=== PATIENT | female | born 1970 | race Caucasian/White ===

== ENCOUNTER 2018-02-11 08:45 | Observation (INO) | payer OTHER ==
[2018-02-11] MEDS ORDERED: ceFAZolin 2 GM/SWFI 2 GM/20 ML SYR IVP ONE (09:07)
[2018-02-11] MEDS ORDERED: LR 1,000 ML IV ONE (09:08)
[2018-02-11] MEDS ORDERED: ceFAZolin 2 GM/DEXTROSE 100 ML IV ONE (09:30)
[2018-02-11] MEDS ORDERED: BUPIVACAINE 0.25% 30 ML SDV ONE ×2 (11:00→12:06)
[2018-02-11] MEDS ORDERED: BACITRACIN ZINC 14.2 GM OINTTUBE TP ONE (11:00)
[2018-02-11] MEDS ORDERED: GENTAMICIN SULFATE 80 MG/2 ML VIAL ONE (11:01)
[2018-02-11] MEDS ORDERED: METHYLENE BLUE 0.5% 50 MG/10 ML AMP ONE (11:01)
[2018-02-11] MEDS ORDERED: ceFAZolin 1 GM/5 ML SYR ONE (11:02)
[2018-02-11] MEDS ORDERED: BACITRACIN 50,000 UNITS/10 ML SYR IRR ONE (11:02)
[2018-02-11] MEDS ORDERED: DEXAMETHASONE 4 MG/ML VIAL IVP PRN (11:12)
[2018-02-11] MEDS ORDERED: MIDAZOLAM 2 MG/2 ML VIAL IVP ONE (11:12)
[2018-02-11] MEDS ORDERED: fentaNYL 100 MCG/2 ML INJ IVP PRN ×2 (11:12→15:59)
[2018-02-11] MEDS ORDERED: HYDROmorphONE/DILAUDID 1 MG/ML INJ IVP PRN (11:12)
[2018-02-11] MEDS ORDERED: ALBUTEROL 3 ML DEYVIAL IH PRN (11:12)
[2018-02-11] MEDS ORDERED: ONDANSETRON 4 MG/2 ML VIAL IVP PRN ×2 (11:12→15:59)
[2018-02-11] MEDS ORDERED: oxyCODONE IR 5 MG TAB PO PRN (11:12)
[2018-02-11] MEDS ORDERED: NALOXONE HCL 0.4 MG/ML INJ IVP PRN ×2 (11:12→15:59)
--- NOTE | 2018-02-11 11:12 | PDHPUP ---
History & Physical Update H&P update statement: This history and physical update is based on an assessment of the patient which was completed after admission or registration (within 24 hours), but prior to the surgery/procedure. H&P update: H&P reviewed & patient examined, no change in patient's condition since H&P completed
--- NOTE | 2018-02-11 11:14 | PDANEPAE ---
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 ANE Past Medical History - Cardiovascular History Hx Hypertension: No Hx Arrhythmias: No Hx Chest Pain: No Hx Coronary Artery / Peripheral Vascular Disease: No Hx CHF / Valvular Disease: No Hx Palpitations: No - Pulmonary History Hx COPD: No Hx Asthma/Reactive Airway Disease: No Hx Recent Upper Respiratory Infection: No Hx Oxygen in Use at Home: No Hx Sleep Apnea: No Sleep Apnea Screening Result - Last Documented: Negative - Neurologic History Hx Cerebrovascular Accident: No Hx Seizures: No Hx Dementia: No - Endocrine History Hx Diabetes: No - Renal History Hx Renal Disorders: No - Liver History Hx Hepatic Disorders: No - Neurological & Psychiatric Hx Hx Neurological and Psychiatric Disorders: No Neurological / Psychiatric History Comment: situational anxiety - Cancer History Hx Cancer: No - Congenital Disorder History Hx Congenital Disorders: Yes Congenital History Comment: breast cancer - GI History Hx Gastrointestinal Disorders: No - Other Health History Other Health History: none - Chronic Pain History Chronic Pain: No - Surgical History Prior Surgeries: bilat biopsy breast ANE Review of Systems Review of Systems: - Exercise capacity Exercise capacity: >=4 METS METS (RN): 5 METS ANE Patient History - Allergies Allergies/Adverse Reactions: No Known Allergies Allergy (Verified 01/14/18 08:45) - Home Medications Home Medications: Calcium Carb W/Vit D [Calcium Carb W/Vit D 500/200 (*)] 500 mg PO DAILY [Last Taken 02/03/18] Herbals/Supplements -Info Only 1 ea PO DAILY 01/14/18 [Last Taken 02/03/18] Levothyroxine [Synthroid 88 mcg (*)] 88 mcg PO DAILY06 01/14/18 [Last Taken 04/23] Multivitamins W-Minerals [Thera M Plus Tablet (*)] 1 each PO DAILY 01/14/18 [ Last Taken 02/03/18] - NPO status NPO Since - Liquids (Date): 02/10/18 NPO Since - Liquids (Time): 21:00 NPO Since - Solids (Date): 02/10/18 NPO Since - Solids (Time): 20:00 - Smoking Hx Smoking Status: Never smoked - Family Anes Hx Family Hx Anesthesia Complications: none ANE Labs/Vital Signs - Vital Signs Blood Pressure: 136/92 Heart Rate: 80 Respiratory Rate: 18 O2 Sat (%): 100 Height: 167.64 cm Weight: 50.802 kg ANE Physical Exam - Airway Neck exam: FROM Mallampati Score: Class 2 - Pulmonary Pulmonary: clear to auscultation - Cardiovascular Cardiovascular: regular rate and rhythym - ASA Status ASA Status: II ANE Anesthesia Plan Anesthesia Plan: GA w LMA
[2018-02-11] MEDS ORDERED: MIDAZOLAM 2 MG/2 ML VIAL ONE (11:26)
[2018-02-11] MEDS ORDERED: PROPOFOL 200 MG/20 ML VIAL ONE (11:28)
[2018-02-11] MEDS ORDERED: LIDOCAINE 2% 5 ML SDV ONE (11:29)
[2018-02-11] MEDS ORDERED: fentaNYL 100 MCG/2 ML INJ ONE (11:30)
[2018-02-11] MEDS ORDERED: HYDROmorphONE/DILAUDID 2 MG/ML INJ ONE (12:13)
[2018-02-11] MEDS ORDERED: DEXAMETHASONE 4 MG/ML VIAL ONE (12:42)
[2018-02-11] MEDS ORDERED: ONDANSETRON 4 MG/2 ML VIAL ONE (12:42)
[2018-02-11] MEDS ORDERED: RANITIDINE 50 MG/2 ML VIAL ONE (12:43)
[2018-02-11] MEDS ORDERED: ONDANSETRON DISINTEGRATING 4 MG TAB PO PRN (13:46)
[2018-02-11] MEDS ORDERED: ACETAMINOPHEN 325 MG TAB PO PRN (13:51)
[2018-02-11] MEDS ORDERED: ceFAZolin 1 GM VIAL ONE (14:00)
[2018-02-11] MEDS ORDERED: LR 1,000 ML IV SCH (14:00)
[2018-02-11] MEDS ORDERED: ROCURONIUM 50 MG/5 ML VIAL ONE (14:02)
[2018-02-11] MEDS ORDERED: NITROGLYCERIN 2% 1 GM PACKET TP ONE (14:15)
--- NOTE | 2018-02-11 14:24 | POSTOPPROG ---
Post Op Note Date of Operation: 02/11/18 Surgeon: Arvind Cardoza (, FACS) Manager Scientific: Beryl Varma RN-FA Anesthesia: GET(General Endotracheal) Pre-op Diagnosis: Atypical Lobular Hyperplasia Procedure: bilateral nipple sparing mastectomy Inf/Abcess present in the surg proc area at time of surgery?: No Specimen(s): bilateral breast tissue tagged for orientation
[2018-02-11] MEDS ORDERED: PHENYLEPHRINE HCL 100 MCG/ML SYR ONE ×2 (14:51)
[2018-02-11] MEDS ORDERED: SUGAMMADEX SODIUM 200 MG/2 ML VIAL IVP ONE (15:23)
--- NOTE | 2018-02-11 15:47 | POSTOPPROG ---
Post Op Note Date of Operation: 02/11/18 Surgeon: Abraham Lee Acid Patroller: Guy LISA Anesthesia: GET(General Endotracheal) Pre-op Diagnosis: Left breast atypia/high risk breast cancer Post-op Diagnosis: Same Indication: High risk breast cancer Procedure: Bilateral tissue packer fuser recon Inf/Abcess present in the surg proc area at time of surgery?: No EBL: Minimal (40cc) Total fluids administered: 1500cc Complications: none Drains: Evens Conti (x2)
[2018-02-11] MEDS ORDERED: HYDROCODONE/APAP 5/325 TAB PO PRN (15:59)
[2018-02-11] MEDS ORDERED: LR 500 ML IV PRN (15:59)
--- NOTE | 2018-02-11 15:59 | POSTANESTH ---
Post Anesthetic Evaluation Cardiovascular Status: Similar to Pre-Op Cond Respiratory Status: Similar to Pre-op Cond. Level of Consciousness/Mental Status: Mildly Sleepy, Arousable Pain Control: Adequate, Prn Tx Ordered Nausea/Vomiting Control: Adequate, Prn Tx Ordered Complications Possibly Related to Anesthesia: None Noted
--- NOTE | 2018-02-11 16:27 | GOP ---
[f rep st] OPERATIVE REPORT DATE OF OPERATION: 02/11/2018 SURGEON: Abraham Lee MD ANESTHESIA: General endotracheal. PREOPERATIVE DIAGNOSIS: High-risk breast cancer and left breast atypia. POSTOPERATIVE DIAGNOSIS: High-risk breast cancer and left breast atypia. PROCEDURE PERFORMED: Bilateral tissue rn testing reconstruction with AlloDerm. FINDINGS: SPECIMENS: None. ESTIMATED BLOOD LOSS: 40. INDICATIONS: This is a pleasant 47-year-old female with a family history of breast cancer as well as multiple left breast biopsies for atypia. She elected to undergo prophylactic mastectomies with imm ediate reconstruction. DESCRIPTION OF PROCEDURE: Patient was met previously in my office where the risks and benefits were discussed at length which include infection, bleeding, hematoma, seroma, mastectomy skin flap necrosi s, partial or total nipple necrosis, asymmetries, deformities, and need for further revision surgery. She was agreeable to this and therefore signed the operative consent. The nipple sparing mastectom y part will be dictated by my colleague, Dr. Alan Cardoza. IV FLUIDS: 1500. URINE OUTPUT: Not recorded. COMPLICATIONS: None. DESCRIPTION OF PROCEDURE: We began with our part of the procedure on the right side and the exact sa me procedure was performed on each side. We began by identifying the lateral border of the pectorali s major muscle and lifting this up off the chest wall, dissecting with electrocautery taking care to coagulate any intercostal perforators. Hemostasis was obtained with electrocautery and the pocket wa s then developed both medially, superiorly, as well as inferiorly releasing the pectoralis major off the inferior chest wall. Once we were happy with the pocket dissection, the base width was measured which was approximately 11 cm. We therefore chose an 11 cm tissue rn testing. We next used a 16 x 20 cm piece of AlloDerm thick on the right side. This was contoured and cut to shape for completion of the pocket. This was then sewn in and recreated the inframammary fold as well as the lateral pocket with 2-0 Vicryl suture. The pocket was then washed out with copious amounts of triple antibiotic niki ine. My hospital clinic assistant and I then changed our gloves. We then delivered the rn testing, which was a 133 MX -11-T rn testing after all the air was taken out in a closed sterile fashion. This was then delivered in the subpectoral pocket. Good position was then confirmed and the tabs were sutured down to the ch est wall with 2-0 PDS suture. The pocket was then completely closed with a running a 2-0 Vicryl sutu re to the superior border of the AlloDerm with the inferior border of the pectoralis major muscle wit h a running 2-0 Vicryl. We again washed out the pocket and noticed some oozing. Therefore, more hem ostasis was obtained, as well as laterally a piece of Surgicel was placed on both sides. A 15-Albanian round YANG drain was placed in the gutter of the lateral axilla on both sides. This was sutured to th e skin with 2-0 silk suture. We then approximated the skin edges with angel and filled each expand er to 50 cc bilaterally under closed sterile conditions with sterile saline infused with methylene bl ue. The incisions were then closed with a 3-0 interrupted Vicryl subdermal sutures and 3-0 Monocryl subdermal sutures and a running 4-0 mm. Then bacitracin was placed on the wounds. Nitroglycerin was placed on the nipples for vasodilation. The drains were activated prior to leaving the OR. Fluffs and a surgical support bra were placed. The expanders on the right side, serial #[id number] and that i s a 133 MX-11-T. The fill was 50 cc. Total capacity was 300 cc on the left side. Serial #[id number]. This is also 133 MX-11 T. Fill with 50/300 cc. The count was correct at the end of the case. The re were no immediate complications. She was woken and taken to PACU in good condition. /[id number]/MODL
[2018-02-11] MEDS: IBUPROFEN 600 MG TAB PO SCH ×2 (16:45→21:17)
[2018-02-11] MEDS: CYCLOBENZAPRINE 10 MG TAB PO SCH ×2 (16:46→21:17)
[2018-02-12] MEDS: oxyCODONE IR 5 MG TAB PO PRN ×2 (00:47→10:05)
--- NOTE | 2018-02-12 04:40 | GOP ---
[f rep st] OPERATIVE REPORT DATE OF OPERATION: 02/11/2018 SURGEON: Arvind Cardoza MD, FACS PODIATRIC MEDICINE PROFESSOR: TRINIDAD Dyson ANESTHESIA: General endotracheal, Rober Macedo D.O. PREOPERATIVE DIAGNOSIS: Bilateral atypical lobular hyperplasia. POSTOPERATIVE DIAGNOSIS: Bilateral atypical lobular hyperplasia. PROCEDURE PERFORMED: Bilateral nipple sparing mastectomy. FINDINGS: Unremarkable appearing breast tissue tagged in the subareolar position cephalad and laterally for orientation. SPECIMENS: For permanent section. ESTIMATED BLOOD LOSS: For this portion of the procedure was approximately 150 mL. DESCRIPTION OF PROCEDURE: After informed consent was obtained, the patient was brought to the operating room and placed under general anesthesia. Both breasts , chest wall, neck, and upper abdomen were prepped and draped carefully preoperatively. Before proceeding, a time-out and identification of the patient was performed. The safe and timely completion of the operation required the help of a qualified 1st bus assistant and CARIE Flynn, was requested to attend. The left mastectomy was performed 1st as follows. Dr. Lee, who was scheduled to perform immediate reconstruction after the mastectomies, had marked the patient preoperatively. In addition, I had marked the extent of the breast on the skin surface. An inframammary incision was planned. I 1st performed a 4 level intercostal block with 5 cc of 0.5% Marcaine in the 4th, 5th , 6th, and 7th intercostal spaces. The inframammary incision was incised with a scalpel and dissection carried out through the remainder of the mastectomy with cautery. The breast was 1st dissected off the pectoralis muscle posteriorly, medially to the sternal border, cephalad to the infraclavicular fossa and laterally to the anterior latissimus border. This was accomplished with the use of Bovie cautery for dissection and lighted retractors. Subsequently, the breast tissue was dissected from the subcutaneous tissues starting at the level of the inframammary fold incision and fanning out medially , cephalad and laterally. The dissection was carried toward the nipple-areolar complex, which was identified and the breast tissue dissected off the skin on either side and this allowed careful visualization of the subareolar tissue, and it was dissected close to the level of the nipple without actually coring out the central nipple ducts. Blood supply appeared to be adequate despite a prior circumareolar biopsy incision. After the subareolar complex was from the overlying nipple-areolar complex, the subareolar complex was tagged with a 3-0 silk suture. The remainder of the dissection was carried out in a similar fashion, the breast from the overlying skin with gentle traction applied to the breast tissue and countertraction on the skin externally by my bus assistant. Care was taken to avoid injury to the skin or blood supply of the skin. There was a prominent intercostal back end developer that was secured with a hemoclip and divided. The breast tissue was then dissected circumferentially inferiorly at the inframammary fold, medially to the sternal border, cephalad to the infraclavicular fossa and subsequently laterally off the anterior border of the latissimus. And the axillary fascia was not incised. There were no suspicious or palpable nodules or lymph nodes within the specimen. The specimen was removed from the field. Additional sutures were used to tag the lateral margin (long) and superior margin (double). Specimen was submitted for permanent section. Hemostasis appeared secure. The wound was irrigated, aspirated and a moistened lap sponge was placed over the inframammary incision. A right nipple-sparing mastectomy was performed through a similar if not mirror- image incision in the inframammary fold. A 4 level intercostal block was also performed on the right before proceeding. Dissection was carried out in a similar fashion, mobilizing the breast tissue off the pectoralis including the retromammary fascia medially to the sternal border, superiorly to the infraclavicular fossa, laterally to the latissimus border. The breast tissue was then dissected from the overlying skin carefully to the nipple areolar complex, which was also somewhat tethered because of the prior circumareolar biopsy incision. The scar tissue was slowly and carefully from the overlying nipple-areolar complex the subareolar ductal tissue with cautery. This was also tagged with a 3-0 silk suture for later identification. The remainder of the dissection involved liberating the breast tissue from the overlying subcutaneous tissues with gentle traction and the use of lighted retractors. Dissection was carried out medially to the sternal border, cephalad to the infraclavicular fossa and laterally to the latissimus border. The axillary fascia was not incised on the left side and there were no suspicious nodules or lymph nodes observed. The breast was then from its inferior lateral superior attachments as well as the lateral border where larger vessels were hemoclipped and divided. A prominent intercostal back end developer on the right was also hemoclipped. The specimen was removed from the field. Additional sutures were used to whitney the lateral margin, the superior margin and tissue was submitted for permanent section. The wound was irrigated and aspirated. Hemostasis appeared secure. Dr. Lee then scrubbed in to perform immediate reconstruction to be dictated as a separate operative report. COMPLICATIONS: None. /[id number]/MODL MTDD
[2018-02-12] MEDS: IBUPROFEN 600 MG TAB PO SCH ×2 (05:39→10:04)
[2018-02-12] MEDS ORDERED: LEVOTHYROXINE 88 MCG TAB PO SCH (06:00)
--- NOTE | 2018-02-12 09:24 | PDDCSUM ---
Discharge Summary Discharge Summary: #[id number] Discharge Dictated S MD Nani, FACS
[2018-02-12] MEDS: CYCLOBENZAPRINE 10 MG TAB PO SCH (10:05)
--- NOTE | 2018-02-12 10:10 | GDS ---
[f rep st] DISCHARGE SUMMARY DISCHARGE DIAGNOSIS: Bilateral atypical lobular hyperplasia. PROCEDURES PERFORMED: 02/10/2018, bilateral nipple sparing mastectomy with immediate reconstruction. HOSPITAL COURSE: For details of admission history and physical, please see dictated summary. Briefl y, the patient is a 47-year-old female with bilateral atypical lobular hyperplasia, who elected to pr oceed with nipple sparing mastectomy for risk reduction with immediate reconstruction. This was perf ormed on the day of admission, and she had an uncomplicated postoperative course. At the time of dis charge the following morning, she was afebrile, ambulatory. her surgical sites appeared uncomplicated , and she was tolerating a soft diet. She had some mild nausea immediately after the surgery that dexter d resolved. She was discharged home with instructions in wound care, drain care, and will follow up with Dr. Lee for her first dressing change. DISCHARGE MEDICATIONS: Include Flexeril 10 mg p.o. three times daily, ibuprofen 600 mg p.o. four kam es daily, levothyroxine 88 mcg p.o. daily, Zofran 4 mg q.4 hours p.r.n. nausea, oxycodone 5-10 mg p.o . q.4 hours p.r.n. pain. She will resume calcium carbonate with vitamin D, herbal supplements, and m ultiple vitamins. The patient will follow up in my office in approximately 10 days. I will contact her with pathology results. PHYSICAL EXAM: On the morning of discharge, patient's lungs were clear. Heart was regular in rate a nd rhythm without tachycardia. The mastectomy sites appeared uncomplicated. /[id number]/MODL
[2018-02-12 11:47] VITALS: BP 111/65
--- NOTE | 2018-02-12 14:29 | ASMTLACE ---
PAULE Length of stay for Answers: 1 day current admission Acuity / Level of Answers: No Care: Did the patient have an inpatient admission? Comorbidities - select Answers: Other Notes: Hypothyroid all that apply # of Emergency department Answers: 0 visits in the last 6 months Score: 2 Date Signed: 02/12/2018 02:28 PM Electronically Signed By:Kristin Mensah RN
--- NOTE | 2018-02-12 14:32 | ASMTCMCOM ---
CM Note CM Note Notes: Pt admitted for a planned bilateral nipple sparing mastectomy with immediate reconstruction. History includes hypothyroid and family history of breast cancer. Pt is and lives with her spouse. 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 Per MD notes, pt to discharge home independently today with family support and no identified needs. No IM/NAPIER signed, not applicable, pt has [employer] PPO. Pt to follow up as directed. CM available for any further issues or concerns. Discharge Plan: Home independently with family support Date Signed: 02/12/2018 02:32 PM Electronically Signed By:Kristin Mensah RN
--- NOTE | 2018-02-12 14:33 | ASDISCHSUM ---
Discharge Information Plan Status:Home with No Needs Medically Cleared to Leave:02/12/2018 Discharge Date:02/12/2018 12:34 PM CM D/C Disposition:Home, Routine, Self-Care ADT D/C Disposition:Home, Routine, Self-Care Projected Discharge Date:02/12/2018 12:34 PM Transportation at D/C:Family Discharge Delay Reason: Follow-Up Date:02/12/2018 12:34 PM Discharge Slot:1 - 8:01 am - 12:00 noon Final Diagnosis:Bilateral nipple sparing mastectomy with immediate reconstruction Placement Information Patient Contact Information Contact Name:HYACINTH Relationship: Address:[address] Work Phone: [facility]:[place] Alternate Phone: [facility]/Zip Code:[place] [address] Email: Financial Information Financial Class:HMO and PPO Plans Primary Plan Desc:[employer] PPO Primary Plan Number:[id number] Secondary Plan Desc: Secondary Plan Number: Assessment Information LACE LACE Length of stay for Answers: 1 day current admission Acuity / Level of Answers: No Care: Did the patient have an inpatient admission? Comorbidities - select Answers: Other Notes: Hypothyroid all that apply # of Emergency department Answers: 0 visits in the last 6 months Score: 2 Date Signed: 02/12/2018 02:28 PM Electronically Signed By:Kristin Mensah RN [facility] CM Progress Note CM Note CM Note Notes: Pt admitted for a planned bilateral nipple sparing mastectomy with immediate reconstruction. History includes hypothyroid and family history of breast cancer. Pt is and lives with her spouse. 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 Per MD notes, pt to discharge home independently today with family support and no identified needs. No IM/NAPIER signed, not applicable, pt has [employer] M[employer]ERO PPO. Pt to follow up as directed. CM available for any further issues or concerns. Discharge Plan: Home independently with family support Date Signed: 02/12/2018 02:32 PM Electronically Signed By:Kristin Mensah RN Intervention Information
== END 2018-02-12 12:34 | disposition home or self-care (01) ==
LOC: F3E 08:45
PROVIDERS: ADMIT Surgery; ATTEND Surgery
PROC: 0HTV0ZZ Resection of Bilateral Breast, Open Approach (ICD-10-PCS; principal; 2018-02-11 10:15)
PROC: 0HHV0NZ Insertion of Tissue Expander into Bilateral Breast, Open Approach (ICD-10-PCS; 2018-02-11 10:15)
DX: N60.91 Unspecified benign mammary dysplasia of right breast (principal); Z80.3 Family history of malignant neoplasm of breast; E03.9 Hypothyroidism, unspecified; F41.8 Other specified anxiety disorders
CPT/HCPCS: 19303; 19357; G0378; J0690; J1100; J1170; J1580; J2250; J2370; J2405; J2704; J2780; J3010; Q4116; Q9968